=== PATIENT | male | born 1975 ===

== ENCOUNTER → 2021-05-23 14:17 | Outpatient (BNVA) | payer BC, SELFPAY | PROVIDERS: PCP Internal Medicine; Visit Provider Hospitalist ==

== ENCOUNTER 2021-06-29 15:00 | Outpatient (REF) | payer BC, SELFPAY | END 2021-06-29 15:01 | disposition home or self-care (01) | LOC: HO.RESP 15:00 | PROVIDERS: PCP Internal Medicine; Visit Provider Hospitalist | DX: Z13.89 Encounter for screening for other disorder (principal) ==